=== PATIENT | female | born 1955 | race Caucasian/White ===

== ENCOUNTER → 2020-10-12 | Outpatient (CLI) | payer BC ==
--- NOTE | 2020-10-12 11:38 | Diagnostic Imaging Report ---
INDICATION: Left shoulder injury. TECHNIQUE: AP, oblique, and transscapular views of the left shoulder were obtained. FINDINGS: No fracture or dislocation is seen. There is no acute bony abnormality. The glenohumeral joint and AC joint appear unremarkable. IMPRESSION: Negative left shoulder. Dictated by: Dictated on workstation # [id number]
== END ==
LOC: RAD FS 10:37
PROVIDERS: ATTEND Nurse Practitioner
DX: S49.92XA Unspecified injury of left shoulder and upper arm, initial encounter (principal)
CPT/HCPCS: 73030

== ENCOUNTER 2022-03-06 21:30 | Emergency (ER) | payer MEDICARE ==
[~2022-03-06] VITALS: Ht 167.7 cm; Wt 81.2 kg
[2022-03-06 22:08] LABS: BASOPHILS % (AUTO) 0 % (0-10); EOSINOPHILS # (AUTO) 0.1 10^3/uL (0.0-0.3); EOSINOPHILS % (AUTO) 1 % (0-10); HEMATOCRIT 39 % (35-52); HEMOGLOBIN 13.2 g/dL (11.5-16.0); LYMPHOCYTES # (AUTO) 3.6 10^3/uL (1.0-4.0); LYMPHOCYTES % (AUTO) 37 % (12-44); MEAN CORPUSCULAR HEMOGLOBIN 31 pg (25-34); MEAN CORPUSCULAR HGB CONC 34 g/dL (32-36); MEAN CORPUSCULAR VOLUME 91 fL (80-99); MONOCYTES # (AUTO) 1.3 10^3/uL (0.0-1.0); MONOCYTES % (AUTO) 13 % (0-12); NEUTROPHILS # (AUTO) 4.7 10^3/uL (1.8-7.8); NEUTROPHILS % (AUTO) 48 % (42-75); PLATELET COUNT 251 10^3/uL (130-400); WHITE BLOOD COUNT 9.7 10^3/uL (4.3-11.0)
[2022-03-06 22:26] LABS: CHLORIDE 102 MMOL/L (98-107); POTASSIUM 3.9 MMOL/L (3.6-5.0); SODIUM 137 MMOL/L (135-145)
[2022-03-06 22:27] LABS: ALANINE AMINOTRANSFERASE 16 U/L (0-55); ALBUMIN 4.5 GM/DL (3.2-4.5); ALKALINE PHOSPHATASE 89 U/L (40-136); BILIRUBIN,TOTAL 0.4 MG/DL (0.1-1.0); BUN/CREATININE RATIO 17; CALCIUM 9.7 MG/DL (8.5-10.1); CARBON DIOXIDE 26 MMOL/L (21-32); CREATININE SERUM 0.96 MG/DL (0.60-1.30); GFR ESTIMATED 66; GLUCOSE 146 MG/DL (70-105)
[2022-03-06] MEDS ORDERED: LIDOCAINE 2% VISCOUS 15 ML UDC PO ONE (22:45)
[2022-03-06] MEDS ORDERED: ANTACID SUSP 30 ML UDC (MYLANTA) PO ONE (22:45)
--- NOTE | 2022-03-06 23:05 | ED Cardiac General ---
History of Present Illness General Chief Complaint: Cardiac/General Problems Stated Complaint: HEAVINESS IN CHEST Nursing Triage Note: Patient arrival per POV to ED and ambulatory to ED 1 accompanied by . Patient reports chest discomfort on and off for 7 days that has subsided a few times. Pt states she thinks she has an undiagnosed hiatal hernia and IBS. Pt states it gets heavy and tight pressure intermittant at high epigatric up to sternal region. Has not reported to her PCP this week and no previous cardiac work up. Source: patient Exam Limitations: no limitations History of Present Illness Date Seen by Provider: Mar 06, 2022 Time Seen by Provider: 21:30 Initial Comments Patient is a 66-year-old female presents with intermittent chest discomfort on and off for the past 7 days. Symptoms are worse with palpation and after eating. Patient states symptoms are partial relief when supine. She took Pepcid prior to ED arrival with out significant relief. History of hiatal hernia and irritable bowel syndromes. Denies history of CAD. No exertional chest pain. No shortness of breath nausea vomiting, sweats. No other acute symptoms or complaints. Timing/Duration: 6-7 days Severity: moderate Location: epigastric Activities at Onset: other Prior CP/Workup: other Modifying Factors: improves with other ASA po SPECIAL EVENT ASSISTANT: No Associated Systoms: Other Allergies and Home Medications Allergies Coded Allergies: No Known Drug Allergies (Unverified , 03/06/22) Patient Home Medication List Home Medication List Reviewed: Yes Review of Systems Review of Systems Constitutional: see HPI EENTM: See HPI Respiratory: See HPI Cardiovascular: See HPI Gastrointestinal: See HPI Genitourinary: See HPI Musculoskeletal: see HPI Past Axyccwd-Eplgbf-Uemilf Hx Patient Social History Tobacco Use?: No Substance use?: No Alcohol Use?: No Pt feels they are or have been: No Immunizations Up To Date First/Initial COVID19 Vaccinat: J & J date? Past Medical History Surgery/Hospitalization HX: HTN, Hyperlipidemia, Hypothyroidism Physical Exam Vital Signs Vital Signs - First Documented 03/06/22 22:13 Temp 36.7 Pulse 81 Resp 16 B/P (MAP) 161/87 (111) Pulse Ox 98 O2 Delivery Room Air Capillary Refill : Less Than 3 Seconds Height, Weight, BMI Height: '" Weight: lbs. oz. kg; 28.00 BMI Method: General Appearance: No Apparent Distress, WD/WN HEENT: PERRL/EOMI, Normal ENT Inspection, Pharynx Normal Neck: Full Range of Motion, Normal Inspection Respiratory: Chest Non Tender, Lungs Clear Cardiovascular: Regular Rate, Rhythm Gastrointestinal: Soft, Tenderness (Mild midepigastric) Neurologic/Psychiatric: Alert, Oriented x3 Focused Exam Sepsis Stage: Ruled Out Progress/Results/Core Measures Results/Orders Lab Results Laboratory Tests Test 03/06/22 21:50 Range/Units White Blood Count 9.7 4.3-11.0 10^3/uL Red Blood Count 4.27 3.80-5.11 10^6/uL Hemoglobin 13.2 11.5-16.0 g/dL Hematocrit 39 35-52 % Mean Corpuscular Volume 91 80-99 fL Mean Corpuscular Hemoglobin 31 25-34 pg Mean Corpuscular Hemoglobin Concent 34 32-36 g/dL Red Cell Distribution Width 12.4 10.0-14.5 % Platelet Count 251 130-400 10^3/uL Mean Platelet Volume 10.0 9.0-12.2 fL Immature Granulocyte % (Auto) 0 % Neutrophils (%) (Auto) 48 42-75 % Lymphocytes (%) (Auto) 37 12-44 % Monocytes (%) (Auto) 13 H 0-12 % Eosinophils (%) (Auto) 1 0-10 % Basophils (%) (Auto) 0 0-10 % Neutrophils # (Auto) 4.7 1.8-7.8 10^3/uL Lymphocytes # (Auto) 3.6 1.0-4.0 10^3/uL Monocytes # (Auto) 1.3 H 0.0-1.0 10^3/uL Eosinophils # (Auto) 0.1 0.0-0.3 10^3/uL Basophils # (Auto) 0.0 0.0-0.1 10^3/uL Immature Granulocyte # (Auto) 0.0 0.0-0.1 10^3/uL Sodium Level 137 135-145 MMOL/L Potassium Level 3.9 3.6-5.0 MMOL/L Chloride Level 102 98-107 MMOL/L Carbon Dioxide Level 26 21-32 MMOL/L Anion Gap 9 5-14 MMOL/L Blood Urea Nitrogen 16 7-18 MG/DL Creatinine 0.96 0.60-1.30 MG/DL Estimat Glomerular Filtration Rate 66 BUN/Creatinine Ratio 17 Glucose Level 146 H 70-105 MG/DL Calcium Level 9.7 8.5-10.1 MG/DL Corrected Calcium 9.3 8.5-10.1 MG/DL Total Bilirubin 0.4 0.1-1.0 MG/DL Aspartate Amino Transf (AST/SGOT) 15 5-34 U/L Alanine Aminotransferase (ALT/SGPT) 16 0-55 U/L Alkaline Phosphatase 89 40-136 U/L Troponin I < 0.30 <0.30 NG/ML Total Protein 7.0 6.4-8.2 GM/DL Albumin 4.5 3.2-4.5 GM/DL My Orders Orders - ARYA DASILVA DO Cbc With Automated Diff (03/06/22 21:57) Comprehensive Metabolic Panel (03/06/22 21:57) Troponin I Fs (03/06/22 21:57) Chest 1 View Ap/Pa Only (03/06/22 21:57) Ekg Tracing (03/06/22 21:57) Lidocaine 2% Viscous 15 Ml (Xylocaine Vi (03/06/22 22:45) Antacid Suspension (Mylanta Suspension (03/06/22 22:45) Medications Given in ED Current Medications Medications Dose Ordered Sig/Tessa Route Start Time Stop Time Status Last Admin Dose Admin Al Hydrox/Mg Hydrox/Simethicone 30 ml ONCE ONCE PO 03/06/22 22:45 03/06/22 22:46 DC 03/06/22 22:42 30 ML Lidocaine HCl 15 ml ONCE ONCE PO 03/06/22 22:45 03/06/22 22:46 DC 03/06/22 22:42 15 ML Vital Signs/I&O 03/06/22 22:13 Temp 36.7 Pulse 81 Resp 16 B/P (MAP) 161/87 (111) Pulse Ox 98 O2 Delivery Room Air Blood Pressure Mean: 111 Departure Communication (Admissions) Chest x-ray: No acute cardiopulmonary disease. EKG: Normal sinus rhythm, no acute ST-T wave changes Reproducible epigastric pain worse with palpation and eating. EKG troponin negative. Symptoms resolved with GI cocktail. Suspect hiatal hernia versus gastritis versus unknown cause. Recommendations are watchful waiting supportive care with PCP follow-up. Return precautions reviewed. Patient verbalizes understanding agreement discharge instructions prior to departure. Impression Primary Impression: Epigastric pain Disposition: HOME, SELF-CARE Condition: Stable Departure-Patient Inst. Decision time for Depature: 23:09 Referrals: SEMAJ AVERY MD (PCP/Family) Primary Care Physician Patient Instructions: Abdominal Pain, Adult ED Add. Discharge Instructions: You were evaluated with upper abdominal pain/lower chest pain. EKG lab and imaging were performed. The exact cause of your symptoms has not been determined but may be consistent with hiatal hernia or peptic ulcer disease. Please take Pepcid 20 mg twice daily and Gaviscon as needed for additional relief. Avoid fatty foods starchy foods caffeine and alcohol. Follow-up with your PCP for GI/general surgical referral. Return to the ED if new or worsening symptoms All discharge instructions reviewed with patient and/or family. Voiced understanding. ARYA DASILVA DO Mar 06, 2022 23:05
[2022-03-06 23:15] VITALS: BP 121/68
[2022-03-06] MEDS ORDERED: LISI20TA26 PO (23:29)
[2022-03-06] MEDS ORDERED: CLON0.5T4 PO (23:29)
[2022-03-06] MEDS ORDERED: LEVO75TA6 PO (23:29)
[2022-03-06] MEDS ORDERED: ATOR10TA66 PO (23:29)
--- NOTE | 2022-03-07 07:13 | Diagnostic Imaging Report ---
Clinical indication: Patient chest pain. EXAM: Portable chest x-ray upright view. COMPARISON: None. FINDINGS: Lungs/pleura: Lungs are clear. There is no pneumothorax. There is no pleural effusion. Mediastinum: Unremarkable. Pulmonary vasculature: Unremarkable. Heart: Unremarkable. Bones/extrathoracic soft tissue: There are degenerative spurs involving the thoracic spine. IMPRESSION: There is no radiographic evidence of acute cardiopulmonary process. Dictated by: Dictated on workstation # [id number]
== END 2022-03-06 23:15 | disposition home or self-care (01) ==
LOC: EDUNIT# 21:30 → ER FS 21:32
DX: R10.13 Epigastric pain (principal)
CPT/HCPCS: 36415; 71045; 80053; 84484; 85025; 93005